=== PATIENT | male | born 1985 | race Caucasian/White ===

== ENCOUNTER 2019-06-03 06:09 | Day surgery (SDC) | payer OTHER ==
[~2019-06-03 06:09] MED LIST: cefTRIAXone 2 GM VIAL ONE
[2019-06-03] MEDS ORDERED: LACTATED RINGERS 1,000 ML IV ONE ×2 (06:40→09:47)
[2019-06-03] MEDS ORDERED: EPINEPHrine 1 MG/ML AMP ONE (06:54)
[2019-06-03] MEDS ORDERED: BUPIVACAINE 0.25% PF 30 ML VIAL ONE (06:54)
[2019-06-03] MEDS ORDERED: ROPIVACAINE 0.5% PF 20 ML AMPULE ONE (07:07)
--- NOTE | 2019-06-03 07:12 | ANESTHESIA ---
Pre-Anesthesia VS, & Labs - Diagnosis L shoulder labral tear, RC tear - Procedure L shoulder scope w/SLAP Vital Signs: Temp Pulse Resp BP Pulse Ox 36.9 C 82 16 125/79 100 06/03/19 06:15 06/03/19 06:15 06/03/19 06:15 06/03/19 06:15 06/03/19 06:15 Height 5 ft 6 in Weight (kg) 70.31 kg - NPO Last Fluid Intake: coffee @0400 - Lab Results Lab results reviewed: Yes Home Medications and Allergies Home Medications: Ambulatory Orders Nicotine Polacrilex [Nicorette] 2 mg BC 05/15/19 Valacyclovir HCl [Valtrex] 1,000 mg PO 05/15/19 Nicotine Polacrilex [Nicorette] 2 mg BC 05/15/19 Valacyclovir HCl [Valtrex] 1,000 mg PO 05/15/19 Allergies/Adverse Reactions: Allergies Allergy/AdvReac Type Severity Reaction Status Date / Time No Known Drug Allergies Allergy Verified 05/15/19 13:47 Anes History & Medical History - Anesthetic History Anesthesia Complications: reports: No previous complications Family history of Anesthesia Complications: Denies Family history of Malignant Hyperthermia: Denies - Medical History Cardiovascular: reports: None Pulmonary: reports: None Gastrointestinal: reports: Other Urinary: reports: Other Musculoskeletal: reports: Other Endocrine/Autoimmune: reports: None Skin: reports: None Smoking Status: Former smoker - Surgical History General: EGD Urologic: Nephrectomy Exam General: Alert, Oriented x3, Cooperative Dental: WNL Mouth Opening: Greater than 4 Fingerbreadths Neck Mobility: Normal Mallampati classification: I Thyromental Distance: greater than 6 cm Respiratory: Lungs clear, Normal breath sounds, No respiratory distress Cardiovascular: Regular rate Neurological: Normal speech Mental/Cognitive Status: Alert/Oriented X3, Normal for patient Cognitive Status: Within normal limits Plan Anesthesia Type: General, Supraclavicular Block Regional Block: Per Surgeon's request for Post Op pain control Consent for Procedure(s) Verified and Reviewed: Yes Code Status: Attempt Resuscitation ASA classification: 2-Mild systemic disease Is this case an emergency?: No
[2019-06-03] MEDS ORDERED: NEOSTIGMINE 1 MG/1 ML 10 ML MDV IVP ONE ×2 (07:38)
[2019-06-03] MEDS ORDERED: MIDAZOLAM 2 MG/2 ML VIAL IVP ONE (07:38)
[2019-06-03] MEDS ORDERED: GLYCOPYRROLATE 1 MG/5 ML VIAL IVP ONE (07:38)
[2019-06-03] MEDS ORDERED: DEXAMETHASONE 4 MG/ML VIAL IVP ONE (07:38)
[2019-06-03] MEDS ORDERED: ROCURONIUM 50 MG/5 ML VIAL IVP ONE (07:38)
[2019-06-03] MEDS ORDERED: ePHEDrine 50 MG/ML VIAL IVP ONE (07:38)
[2019-06-03] MEDS ORDERED: PROPOFOL 200 MG/20 ML VIAL IVP ONE (07:38)
[2019-06-03] MEDS ORDERED: LIDOCAINE-MPF 2% 5 ML VIAL IM ONE (07:38)
[2019-06-03] MEDS ORDERED: ONDANSETRON 4 MG/2 ML VIAL IVP ONE (07:38)
[2019-06-03] MEDS ORDERED: cefTRIAXone 2 GM VIAL ONE (07:56)
[2019-06-03] MEDS ORDERED: ONDANSETRON 4 MG/2 ML VIAL IVP PRN (09:51)
[2019-06-03] MEDS ORDERED: oxyCODONE 5 MG TABLET PO PRN (09:51)
[2019-06-03] MEDS ORDERED: ACETAMINOPHEN 1,000 MG/100 ML 100 ML IV ONE (09:57)
--- NOTE | 2019-06-03 09:58 | OPERATIVE REPORT ---
Operative Report - Other Other Information/Narrative: Date of Surgery: 03 June 2019 Pre-Op Diagnosis: Left shoulder instability with Bankart tear and a small amount of bone loss Procedure: Left shoulder arthroscopic Bankart repair with capsulorrhaphy Postop Diagnosis: Same Primary Surgeon: Osvaldo Lafleur Secondary Surgeon: None Complications: None EBL: 10 cc IMPLANTS: Arthrex knotless suture tack x4 POSTOPERATIVE PLAN: 0-2 weeks-Sling at all times. Pendulum exercises 5 times per day. 2-6 weeks-Passive range of motion with the following limits: FF to 120 with palm down, ER to 30, abduction to 90 with palm down 6-12 weeks-Active range of motion in all planes without limitation. Isometric rotator cuff strengthening is allowed 12-16 weeks-Gradually increase strengthening 16 weeks and beyond-Introduce dynamic activities EXAMINATION UNDER ANESTHESIA: ROM: Full Anterior load and shift: Grade 2 with click Posterior load and shift: Normal Inferior sulcus: Normal ARTHROSCOPIC FINDINGS: Rotator interval: Normal Biceps tendon & SLAP: Normal Subscapularis: Normal Rotator Cuff: Normal HAGL: Normal Labrum: Bankart tear extending to 6:00 with medialization and inferior translation Glenoid Cartilage: 10 to 15% bone loss. No cartilage lesion Humeral Head Cartilage: Normal INDICATION FOR SURGERY: 34-year-old male with multiple shoulder dislocations the first 1 being 14 years ago. He now has subluxations with small trauma. Imaging was consistent with anterior labral tear and a small amount of bone loss up to 10%. Nonoperative managment failed to resolve symptoms. The risks, benefits, and alternatives were discussed. Risks included pain, bleeding, infection, damage to nearby structures, lack of symptom relief, implant complications, stiffness, need for further surgeries, DVT, PE, stroke, and even . He signed a written consent form. PROCEDURE IN DETAIL: The patient was met in the preoperative holding on the day of the procedure. Operative extremity was signed. Consent was verified. He desired to proceed. Regional anesthesia was obtained in the preoperative area. They were brought to the operating room and surrendered to anesthesia. Once general anesthesia was obtained they were placed in the lateral decubitus position with the operative side up. An axillary roll was placed and all bony prominences were well-padded. They were then prepped and draped in the standard sterile fashion. A surgical timeout was held to confirm the patient procedure, identity, procedure, laterality, allergies, images, and antibiotics. All were in agreement we proceeded. Balanced suspension was applied and a standard diagnostic arthroscopy was performed utilizing posterior and anterior superior portal sites. The anterior superior portal site was created under direct visualization. The findings of the diagnostic arthroscopy can be found above. A mid glenoid portal was then created under direct visualization bordering the subscapularis tendon. I then used a combination of high and low angled elevators to develop the labral tear and release it from off the glenoid neck. I took the release slightly around the back into normal tissue at about 6:30. I then used to the pineapple rasp to finalize my release and abraded the bone to a bleeding bed. A sucker shaver was placed in the interval to debride any loose tissue and further abrade the glenoid neck. Any loose cartilage was debrided at that time. I then established a percutaneous 7:00 portal utilizing the Arthrex system. I then placed an anchor at the 6:00 position. The suture was passed using an appropriate 45 degree suture lasso ensuring to advance the capsular tissue appropriately. The labrum was secured using knotless technique. Appropriate tension was confirmed with a probe and the excess suture was cut. Using the same technique additional anchors were placed at 5:00, 4:00, and 3:00. Proper capsular tension was restored and a labral bumper was recreated. Balanced suspension was then released and final images were taken showing the humeral head centered in the glenoid. The portal sites were then closed with 3-0 Monocryl buried. Mastisol and Steri- Strips were applied. A sterile dressing and a sling was applied. He was awakened and transferred to the recovery room.
[2019-06-03 11:38] VITALS: BP 112/70
== END 2019-06-03 06:10 | disposition home or self-care (01) ==
LOC: SDS 06:09
PROVIDERS: ATTEND Orthopaedic Surgery
PROC: 0RQK4ZZ Repair Left Shoulder Joint, Percutaneous Endoscopic Approach (ICD-10-PCS; principal; 2019-06-03 07:30)
DX: S43.492A Other sprain of left shoulder joint, initial encounter (principal); M25.312 Other instability, left shoulder; Z87.891 Personal history of nicotine dependence